=== PATIENT | female | born 1995 | race Caucasian/White ===

== ENCOUNTER 2018-05-06 20:44 | Emergency (ER) | payer MEDICAID, SELFPAY ==
[2018-05-06 21:00] VITALS: BP 121/66; PULSE 75; RESP 16; TEMP 37.1; O2SAT 98
--- NOTE | 2018-05-06 21:08 | W.ED.GENAD ---
Discharge Plan Disposition Patient Disposition: HOME Condition: Stable Discharge Details Chief Complaint: Sorethroat Clinical Impression: Acute streptococcal pharyngitis Primary Care Provider: Cherelle Robledo ED Provider: Phil Chapa Home Meds and New Rx's Prescriptions: New amoxicillin 500 mg capsule 500 mg PO BID Qty: 20 RF: 0 Discharge Instructions Instructions: Strep Throat (ED) Additional Instructions: Return immediately to the emergency department for any new or significant worsening of symptoms such as any difficulty breathing, inability to swallow, high fevers, or further concerns. Otherwise take your antibiotics as prescribed and until fully complete and follow-up with your primary care provider if not improving over the next week. For discomfort you may use [id number] sore throat medications along with ibuprofen or acetaminophen Stand Alone Forms: Work Release Referrals: Cherelle Robledo PA [Primary Care Provider] - (As needed for reassessment) Discharge Data Discharge Date/Time-TO BE ENTERED AT DEPARTURE: 05/06/18 21:51 Medical Decision Making Patient presenting to the emergency department for chief complaint of sore throat. Patient states that it started earlier this day and has not improved. Patient denies any nasal congestion, cough, drooling, inability to swallow, swelling of tongue. 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 Physical exam shows mild tonsillar erythema with mild hypertrophy otherwise unremarkable examination. medical staff coordinator initiated protocol for rapid strep testing which showed positive rapid strep test. Discussed with patient risk versus benefit of treatment which patient states preferred treatment. Patient placed upon amoxicillin and encouraged to return for any new or significant worsening of symptoms otherwise follow-up with primary care provider if not improving by the end of antibiotic therapy. After discussion of diagnosis and plan of care patient has no further needs, questions, or concerns and states clear understanding to return to the emergency department for any worsening symptoms. HPI General Mode of arrival: ambulatory. Date/Time Provider Initiated Documentation: 05/06/18 21:08. Limitations to Documentation: no limitations. Information obtained by: patient and RN notes reviewed. History of Present Illness 23 year old F presents to the emergency department with the chief complaint of sore hroat, described as mild, with intensity rated at 3. Quality is described as aching, and is localized to the neck (Sore throat). Patient reports no radiation. Patient started experiencing this day(s) (1) and it has been constant. No relieving factors improve symptom(s), No exacerbating factors reported . Patient notes no other symptoms.. Patient did receive the following treatments prior to arrival, none Related Data Home Medications Medication Instructions Recorded Confirmed amoxicillin 500 mg PO BID #20 cap 05/06/18 Previous Rx's Medication Instructions Recorded amoxicillin 500 mg PO BID #20 cap 05/06/18 Allergies Allergy/AdvReac Type Severity Reaction Status Date / Time environmental Allergy Mild Uncoded 05/06/18 21:11 Review of Systems Constitutional Reports chills, Reports fever(s), Denies headache(s) and Reports malaise ENT Reports as per HPI, Denies dysphagia, Denies headache(s), Denies lip swelling, Denies nasal congestion, Reports sore throat, Denies throat swelling and Denies tongue swelling Cardiovascular Denies chest pain Respiratory Denies chest congestion and Denies cough Gastrointestinal Denies dysphagia Neurologic Denies headache(s) Allergic/Immunologic Denies lip swelling, Denies throat swelling and Denies tongue swelling PFSH Family History Mother Age: 46 Asthma Other Diabetes Mental disorder Other Mental disorder Family History Mother Age: 46 Asthma Other Diabetes Mental disorder Other Mental disorder Social History Smoking/Tobacco Use Status: Never Social History Smoking/Tobacco Use Status: Never Exam Const General: cooperative, healthy appearing, comfortable, no acute distress and not ill appearing Orientation: alert, awake and oriented x3 HENMT Head: normal to inspection and normocephalic Ears: hearing grossly normal bilaterally, external ears normal, TM's normal bilaterally and mastoids normal General nose exam: external nose normal and nares normal Face and sinus: normal facial exam and sinuses nontender Mouth: oral mucosae normal, lip normal, tongue normal, no audible dysphonia, no drooling and no trismus Throat: uvula midline, abnormal tonsil bilaterally erythema and hypertrophy 1+ and no peritonsillar masses Neck Neck: normal visual inspection, full ROM, no lymphadenopathy and no meningeal signs Resp Effort & Inspection: normal respiratory effort, able to speak in complete sentences and no stridor Auscultation: clear to auscultation bilaterally Cardio Rate: regular rate Rhythm: regular rhythm Heart Sounds: S1 normal and S2 normal Skin General skin exam: no rashes or lesions noted
--- NOTE | 2018-05-06 21:42 | ED.GENADUL_ITS ---
Discharge Plan Disposition Patient Disposition: HOME Condition: Stable Discharge Details Chief Complaint: Sorethroat Clinical Impression: Acute streptococcal pharyngitis Primary Care Provider: Cherelle Robledo ED Provider: Phil Chapa Home Meds and New Rx's Prescriptions: New amoxicillin 500 mg capsule 500 mg PO BID Qty: 20 RF: 0 Discharge Instructions Instructions: Strep Throat (ED) Additional Instructions: Return immediately to the emergency department for any new or significant worsening of symptoms such as any difficulty breathing, inability to swallow, high fevers, or further concerns. Otherwise take your antibiotics as prescribed and until fully complete and follow-up with your primary care provider if not improving over the next week. For discomfort you may use over- the-counter sore throat medications along with ibuprofen or acetaminophen Stand Alone Forms: Work Release Referrals: Cherelle Robledo PA [Primary Care Provider] - (As needed for reassessment) Discharge Data Discharge Date/Time-TO BE ENTERED AT DEPARTURE: 05/06/18 21:51 Medical Decision Making Patient presenting to the emergency department for chief complaint of sore throat. Patient states that it started earlier this day and has not improved. Patient denies any nasal congestion, cough, drooling, inability to swallow, swelling of tongue. 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 Physical exam shows mild tonsillar erythema with mild hypertrophy otherwise unremarkable examination. public health staff nurse initiated protocol for rapid strep testing which showed positive rapid strep test. Discussed with patient risk versus benefit of treatment which patient states preferred treatment. Patient placed upon amoxicillin and encouraged to return for any new or significant worsening of symptoms otherwise follow-up with primary care provider if not improving by the end of antibiotic therapy. After discussion of diagnosis and plan of care patient has no further needs, questions, or concerns and states clear understanding to return to the emergency department for any worsening symptoms. HPI General Mode of arrival: ambulatory . Date/Time Provider Initiated Documentation: 05/06/18 21:08 . Limitations to Documentation: no limitations . Information obtained by: patient and RN notes reviewed . History of Present Illness 23 year old F presents to the emergency department with the chief complaint of sore hroat, described as mild, with intensity rated at 3. Quality is described as aching, and is localized to the neck (Sore throat). Patient reports no radiation. Patient started experiencing this day(s) (1) and it has been constant. No relieving factors improve symptom(s), No exacerbating factors reported . Patient notes no other symptoms.. Patient did receive the following treatments prior to arrival, none Related Data Home Medications Medication Instructions Recorded Confirmed amoxicillin 500 mg PO BID #20 cap 05/06/18 Previous Rx's Medication Instructions Recorded amoxicillin 500 mg PO BID #20 cap 05/06/18 Allergies Allergy/AdvReac Type Severity Reaction Status Date / Time environmental Allergy Mild Uncoded 05/06/18 21:11 Review of Systems Constitutional Reports chills, Reports fever(s), Denies headache(s) and Reports malaise ENT Reports as per HPI, Denies dysphagia, Denies headache(s), Denies lip swelling, Denies nasal congestion, Reports sore throat, Denies throat swelling and Denies tongue swelling Cardiovascular Denies chest pain Respiratory Denies chest congestion and Denies cough Gastrointestinal Denies dysphagia Neurologic Denies headache(s) Allergic/Immunologic Denies lip swelling, Denies throat swelling and Denies tongue swelling PFSH Family History Mother Age: 46 Asthma Other Diabetes Mental disorder Other Mental disorder Family History Mother Age: 46 Asthma Other Diabetes Mental disorder Other Mental disorder Social History Smoking/Tobacco Use Status: Never Social History Smoking/Tobacco Use Status: Never Exam Const General: cooperative, healthy appearing, comfortable, no acute distress and not ill appearing Orientation: alert, awake and oriented x3 HENMT Head: normal to inspection and normocephalic Ears: hearing grossly normal bilaterally, external ears normal, TM's normal bilaterally and mastoids normal General nose exam: external nose normal and nares normal Face and sinus: normal facial exam and sinuses nontender Mouth: oral mucosae normal, lip normal, tongue normal, no audible dysphonia, no drooling and no trismus Throat: uvula midline, abnormal tonsil bilaterally erythema and hypertrophy 1+ and no peritonsillar masses Neck Neck: normal visual inspection, full ROM, no lymphadenopathy and no meningeal signs Resp Effort & Inspection: normal respiratory effort, able to speak in complete sentences and no stridor Auscultation: clear to auscultation bilaterally Cardio Rate: regular rate Rhythm: regular rhythm Heart Sounds: S1 normal and S2 normal Skin General skin exam: no rashes or lesions noted
[2018-05-06] MEDS: Amoxicillin 500 MG CAP PO (21:45)
== END 2018-05-06 21:51 | disposition home or self-care (01) ==
LOC: ER 21:55
PROVIDERS: Emergency Provider Nurse Practitioner Family; PCP Physician Assistant Medical
DX: J02.0 Streptococcal pharyngitis (principal)
CPT/HCPCS: 87880; 99283

== ENCOUNTER 2021-05-20 15:59 | Outpatient (CLI) | payer SELFPAY ==
--- NOTE | 2021-05-20 15:45 | RT.EKG_ITS ---
APPROVED REPORT Exam: Resting ECG Reason for Exam: Chest pain Patient Location: O HR:70 bpm ECG Measurements Heart Rate 70 AXIS [place] 138 P 46 QRSd 78 QRS 26 QT 417 T 23 QTc 450 Conclusion Sinus rhythm...normal P axis, V-rate 60- 99 Normal Electrocardiogram
== END 2021-05-20 16:00 | disposition home or self-care (01) ==
LOC: DI.CM 16:00
PROVIDERS: PCP Physician Assistant Medical; Visit Provider Physician Assistant
DX: R07.89 Other chest pain (principal)
CPT/HCPCS: 93010

== ENCOUNTER 2021-10-15 16:50 | Outpatient (REF) | payer SELFPAY ==
[2021-10-17 11:22] LABS: COVID-19 RT-PCR UVMMC Result Negative (Negative)
== END 2021-10-15 16:51 | disposition home or self-care (01) ==
LOC: NCHCN 16:50
PROVIDERS: PCP Physician Assistant Medical; Visit Provider Family Medicine
DX: J06.9 Acute upper respiratory infection, unspecified (principal); Z20.822 Contact with and (suspected) exposure to COVID-19
CPT/HCPCS: U0003

== ENCOUNTER 2022-06-27 09:53 | Outpatient (REF) | payer BC, SELFPAY ==
[2022-06-27 19:30] LABS: Abs Immature Grans 0.01 10^3/uL (0.0-0.06); Absolute Basophil Count 0.07 10^3/uL (0.0-0.2); Absolute Lymphocyte Count 1.73 10^3/uL (1.2-3.4); Absolute Monocyte Count 0.53 10^3/uL (0.1-0.8); Absolute Neutrophil Count 4.22 10^3/uL (1.2-6.7); Eosinophils % 4.4; HCT 39.5 % (36.0-46.0); HGB 13.5 g/dL (11.2-15.7); Immature Grans % 0.1; Lymphocytes % 25.2; MCH 31.3 pg (27.0-33.0); MCHC 34.2 % (32.0-36.0); MCV 92 fL (80-95); MPV 12.3 fL (8.0-11.0); Monocytes % 7.7; Neutrophils % 61.6; Platelet Count 264 10^3/uL (130-400); RBC 4.31 10^6/uL (3.93-5.22); RDW-SD 40.5 fL; WBC 6.86 10^3/uL (4.4-10.8)
[2022-06-27 19:41] LABS: ALT 26 U/L (14-59); AST 18 U/L (15-37); Alkaline Phosphatase 84 U/L (46-116); Anion Gap 8.3 mmol/L (3-11); BUN 11 mg/dL (7-18); Bilirubin, Total 0.3 mg/dL (0.2-1.0); CO2 23.7 mmol/L (21.0-32.0); CREATININE 0.8 mg/dL (0.55-1.02); Chloride 107 mmol/L (98-107); Estimated GFR 104.15 (mL/min/1.73m2); Glucose 81 mg/dL (74-106); Potassium 4.4 mmol/L (3.5-5.1); Sodium 139 mmol/L (136-145); Total Protein 7.6 g/dL (6.4-8.2)
== END 2022-06-27 09:54 | disposition home or self-care (01) ==
LOC: NCHCN 09:53
PROVIDERS: PCP Physician Assistant Medical; Visit Provider Physician Assistant Medical
DX: R10.11 Right upper quadrant pain (principal)
CPT/HCPCS: 80053; 85025

== ENCOUNTER 2022-10-31 12:58 | Outpatient (REF) | payer BC, SELFPAY ==
[2022-10-31 14:31] LABS: Abs Immature Grans 0.03 10^3/uL (0.0-0.06); Absolute Basophil Count 0.07 10^3/uL (0.0-0.2); Absolute Eosinophil Count 0.28 10^3/uL (0.0-0.7); Absolute Lymphocyte Count 2.04 10^3/uL (1.2-3.4); Absolute Monocyte Count 0.61 10^3/uL (0.1-0.8); Basophils % 0.8; HCT 39.4 % (36.0-46.0); HGB 13.3 g/dL (11.2-15.7); Immature Grans % 0.3; Lymphocytes % 22.1; MCH 31.2 pg (27.0-33.0); MCHC 33.8 % (32.0-36.0); MCV 93 fL (80-95); MPV 11.1 fL (8.0-11.0); Monocytes % 6.6; Neutrophils % 67.2; Platelet Count 324 10^3/uL (130-400); RBC 4.26 10^6/uL (3.93-5.22); RDW 12.2 % (11.7-14.6); RDW-SD 40.8 fL; WBC 9.23 10^3/uL (4.4-10.8)
[2022-10-31 14:52] LABS: FREE T4 0.88 ng/dL (0.76-1.46); TSH 1.29 uIU/mL (0.36-3.74)
[2022-10-31 15:08] LABS: Vitamin D 25 Total 27.2 ng/mL (30-100)
[2022-10-31 22:03] LABS: T3,Free 4.5 pg/mL (2.8-5.3)
== END 2022-10-31 12:59 | disposition home or self-care (01) ==
LOC: NCHCN 12:58
PROVIDERS: PCP Physician Assistant Medical; Visit Provider Nurse Practitioner Family
DX: L65.9 Nonscarring hair loss, unspecified (principal); R59.0 Localized enlarged lymph nodes; Z83.49 Family history of other endocrine, nutritional and metabolic diseases; E55.9 Vitamin D deficiency, unspecified
CPT/HCPCS: 82306; 84439; 84443; 84481; 85025

== ENCOUNTER 2023-05-19 19:52 | Outpatient (REF) | payer BC, SELFPAY | END 2023-05-19 19:53 | disposition home or self-care (01) | LOC: LBN 19:52 | PROVIDERS: PCP Physician Assistant Medical; Visit Provider Nurse Practitioner Family | DX: J02.9 Acute pharyngitis, unspecified (principal) | CPT/HCPCS: 87077; 87070 ==

== ENCOUNTER 2023-09-26 00:09 | Emergency (ER) | payer BC, SELFPAY ==
[2023-09-26 00:12] VITALS: BP 129/100; PULSE 119; RESP 20; TEMP 36.5; O2SAT 98
--- NOTE | 2023-09-26 00:15 | DI.RAD_ITS ---
Exam(s) XR TOE RT GREAT EXAM: XR TOE RT GREAT CLINICAL HISTORY: partial nail avulsion. TECHNIQUE: 2D digital imaging was performed. COMPARISON: No exams were available for comparison FINDINGS: 3 views There is avulsion of the nail of the great toe. No radiopaque foreign body. No fracture. No soft t issue gas. No degenerative changes. IMPRESSION: Avulsion of the nail of the greater toe evident. No fracture. DATA REPOSITORY: RADIATION DOSE DELIVERED:
--- NOTE | 2023-09-26 00:31 | W.ED.GENAD ---
Discharge Plan Disposition Patient Disposition: Home Condition: Good Discharge Details Clinical Impression: Nail avulsion, toe Primary Care Provider: Cherelle Robledo ED Provider: Marita Loredo Home Meds and New Rx's Prescriptions: Continued albuterol sulfate 90 mcg/actuation HFA aerosol inhaler 2 puff inhalation Q6H PRN (Reason: shortness of breath or wheezing) Qty: 8.5 0RF Discharge Instructions Instructions: Peripheral Nerve Block (DC), Nail Avulsion (ED) Additional Instructions: Tylenol and ibuporfen over the counter as needed for pain; follow the directions on the bottle. Call your primary care doctor on Thursday to schedule an appointment for early this week to follow up on your visit here. Return to the emergency department for new or worsening symptoms. Referrals: Cherelle Robledo PA [Primary Care Provider] - [facility] General Mode of arrival: ambulatory. Date/Time Provider Initiated Documentation: 09/26/23 00:13. Limitations to Documentation: no limitations. Information obtained by: patient. HPI Narrative: 28yo F with hx asthma presenting with right great toe injury. Was dancing with partner, wearing sandals, he stepped on her toe and her nail flipped upward. Severe pain. No numbness or tingling. No other pain or injuries. In her usual state of health prior to this event. Related Data Home Medications Medication Instructions Recorded Confirmed albuterol sulfate 90 mcg/actuation 2 puff inhalation Q6H PRN 07/09/22 09/26/23 aerosol inhaler shortness of breath or wheezing #8.5 grams Previous Rx's Medication Instructions Recorded albuterol sulfate 90 mcg/actuation 2 puff inhalation Q6H PRN 07/09/22 aerosol inhaler shortness of breath or wheezing #8.5 grams Allergies Allergy/AdvReac Type Severity Reaction Status Date / Time shellfish derived Allergy Anaphylaxis Verified 09/26/23 00:15 environmental Allergy Mild Skin Rash Uncoded 09/26/23 00:15 General Stated Complaint: Orthopedic ALEXA: 4 Review of Systems Narrative: see HPI Exam Narrative Exam Narrative: General: Alert, well appearing, well nourished. Head: Normocephalic, atraumatic Neck: Trachea midline, ?Neck supple. Cardiac: No cyanosis. Resp: No respiratory distress. Speaking in full sentences. Abd: Non distended. Extremities: ?Right great toe with partial nail avulsion, nail flipped 90 to toe. No nailbed laceration. Sensation and capillary refill intact. Neurologic: GCS 15. ? Moves all extremities freely against gravity Course Vital Signs Vital signs: Vital Signs Temperature 36.5 C 09/26/23 00:12 Pulse 119 H 09/26/23 00:12 Respiratory Rate 20 09/26/23 00:12 Blood Pressure 129/100 H 09/26/23 00:12 Pulse Oximetry 98 09/26/23 00:12 Temperature 36.5 C 09/26/23 00:12 Pulse 119 H 09/26/23 00:12 Respiratory Rate 20 09/26/23 00:12 Blood Pressure 129/100 H 09/26/23 00:12 Pulse Oximetry 98 09/26/23 00:12 Pain Level 7 09/26/23 00:12 Procedures Nerve Block Nerve Block 1: Time out performed: Yes Local Anesthetic: Lidocaine 2% Amount of anesthesia used (mL): 3 Side: right Nerve Blocks: digital (great toe) Procedure Successful: Yes Patient Tolerated Procedure: well Complications: none Medical Decision Making 28yo F with hx asthma presenting with right great toe injury; was dancing with partner while wearing sandals, he stepped on her toe and her nail flipped upward. Tachycardiac on arrival, vital signs otherwise reassuring. Right great toe with partial nail avulsion, nail flipped 90 to toe. No nailbed laceration. Sensation and capillary refill intact. Isolated injury, no indication for labs or advanced imaging/CT/etc. Given tylenol and toradol for pain, tetanus updated. Plain film great toe reviewed; no fracture on my view, agree with radiology read below. Nailbed irrigated with copious normal saline. Right great toe blocked with three sided block and nail replaced. Discharged home; discharge instructions and return precautions were reviewed with patient who verbalized understanding. All questions were answered and she is in full agreement with the plan. Imaging Data Radiologic Study: Imaging: X-Ray Radiologist's impression: IMPRESSION: 1. Visible avulsion of the nail of the great toe. 2. No fracture. Quality:SDOH Health Related Social Needs: No Data to Display PFSH All Active Problems (Updated 09/26/23 @ 01:30 by Marita Loredo MD) Nail avulsion, toe (Acute) Family History Mother Age: 51 Asthma Other Diabetes Mental disorder depression/anxiety schizaphrenia Other Mental disorder depression/anxiety schizophrenia Social History Smoking/Tobacco Use Status: Never Smoking risk assessment performed?: Yes Alcohol Intake: current Alcohol type: beer and hard liquor Drug use: Never Do you feel safe in your relationship?: Yes PAWSS Have you Been Recently Intoxicated or Drunk Within the Last 30 days?: No Have you Ever Experienced Previous Episodes of Alcohol Withdrawal?: No Have you ever Experienced Withdrawal Seizures?: No Have you ever Experienced Delirium Tremens(DT)s?: No Have you ever undergone Alcohol Rehabilitation Treatment (i.e, inpt ot outpatient treatment programs)?: No Have you ever Experienced Blackouts?: No Have you ever Combined Alcohol with other Downers within the last 90 days?: No Have you ever Combined Alcohol with any other Substance of Abuse during the last 90 days?: No Positive Blood Alcohol level on Presentation? [PCS.BAL]: No Evidence of Increased Autonomic Activity (i.e. HR>120, tremor, sweating, agitation, nausea)?: No Result: 0
[2023-09-26] MEDS: Ketorolac 15 MG/ML VIAL IM (00:32)
[2023-09-26] MEDS: Acetaminophen 500 MG TAB 1000 MG PO (00:33)
[2023-09-26] MEDS: Lidocaine 2% Multi-Dose 50 ML VIAL (01:20)
--- NOTE | 2023-09-26 01:26 | DI.VRAD_ITS ---
PROCEDURE INFORMATION: Exam: XR Right Toe(s) Exam date and time: 09/26/2023 12:50 AM Age: 28 years old Clinical indication: Injury or trauma; Other: Partial nail avulsion; Blunt trauma; Toes; Right TECHNIQUE: Imaging protocol: Radiologic exam of the right toes. Views: Minimum 2 views. COMPARISON: No relevant prior studies available. FINDINGS: Bones/joints: No fracture. Soft tissues: Visible avulsion of the nail of the great toe. No soft tissue gas. IMPRESSION: 1. Visible avulsion of the nail of the great toe. 2. No fracture. Dictated and Authenticated by: Armando Santos MD. Ordering:SHAILESH Kirkland MD
[2023-09-26 01:48] VITALS: BP 148/82; PULSE 98; RESP 20; TEMP 36.6; O2SAT 98
== END 2023-09-26 01:48 | disposition home or self-care (01) ==
PROVIDERS: Emergency Provider Student in an Organized Health Care Education/Training Program; PCP Physician Assistant Medical
DX: S91.201A Unspecified open wound of right great toe with damage to nail, initial encounter (principal); Z23 Encounter for immunization; W50.0XXA Accidental hit or strike by another person, initial encounter; Y93.41 Activity, dancing; Y92.89 Other specified places as the place of occurrence of the external cause
CPT/HCPCS: 11760; 90471; 90715; 96372; 99283; 73660; J1885; J2003

== ENCOUNTER 2024-04-11 13:33 | Outpatient (REF) | payer BC, SELFPAY ==
--- NOTE | 2024-04-11 09:30 | PAPFT_PTH ---
PATIENT: Brittany Pérez LOC: [facility] U#:[id number] AGE/SX: 29/F ROOM: RE04/11/[address]: Cherelle Robledo : 1995 BED: DIS: 04/11/2024 SPEC #: [id number] RECD: 04/11/24 18:31 STATUS: MIKA REBakari #: [id number] LARS: 04/11/24 09:[address]: Cherelle Robledo [facility] Cytology RECD BY: Sarah Zee Tissues: 1 - CX/ENDOCX FOR PAP SMEARS Procedures: PAP THIN PREP/[facility] Screening Comments: [id number]
[2024-04-11 16:43] LABS: Calculated LDL 79 mg/dL (<100); Cholesterol 163 mg/dL (<200); HDL Cholesterol 73 mg/dL (40-60); Triglyceride 55 mg/dL (<150)
[2024-04-11 17:56] LABS: Hemoglobin A1C 4.8 % (<5.7)
[2024-04-12 09:47] LABS: Hepatitis C Ab w Rflx HCV PCR Negative (Negative)
[2024-04-12 09:53] LABS: HIV-1/2 Ag & Ab Screen Negative (Negative)
== END 2024-04-11 13:34 | disposition home or self-care (01) ==
LOC: NCHCN 13:33
PROVIDERS: PCP Physician Assistant Medical; Visit Provider Physician Assistant Medical
DX: Z11.51 Encounter for screening for human papillomavirus (HPV) (principal); Z01.419 Encounter for gynecological examination (general) (routine) without abnormal findings; Z00.00 Encounter for general adult medical examination without abnormal findings; E66.3 Overweight
CPT/HCPCS: 80061; 86803; 87389; 88142; 83036

== ENCOUNTER 2024-11-28 18:15 | Outpatient (REF) | payer BC, SELFPAY ==
[2024-11-28 16:13] LABS: Abs Immature Grans 0.02 10^3/uL (0.0-0.06); Absolute Basophil Count 0.07 10^3/uL (0.0-0.2); Absolute Eosinophil Count 0.24 10^3/uL (0.0-0.7); Absolute Lymphocyte Count 1.78 10^3/uL (1.2-3.4); Absolute Monocyte Count 0.52 10^3/uL (0.1-0.8); Absolute Neutrophil Count 4.02 10^3/uL (1.2-6.7); Basophils % 1.1 %; Eosinophils % 3.6 %; HCT 37.2 % (36.0-46.0); HGB 12.6 g/dL (11.2-15.7); Immature Grans % 0.3 %; Lymphocytes % 26.8 %; MCH 31.5 pg (27.0-33.0); MCHC 33.9 % (32.0-36.0); MCV 93 fL (80-95); MPV 12.4 fL (8.0-11.0); Monocytes % 7.8 %; Neutrophils % 60.4 %; Platelet Count 249 10^3/uL (130-400); RDW 11.5 % (11.7-14.6); RDW-SD 39.2 fL; WBC 6.65 10^3/uL (4.4-10.8)
[2024-11-28 16:42] LABS: INR 0.9 (0.9-1.1); Prothrombin Time 9.4 sec (9.1-11.1)
== END 2024-11-28 18:16 | disposition home or self-care (01) ==
LOC: NCHCN 18:15
PROVIDERS: PCP Physician Assistant Medical; Visit Provider Physician Assistant Medical
DX: R04.0 Epistaxis (principal)
CPT/HCPCS: 85025; 85610; 85730

== ENCOUNTER 2025-03-09 07:30 | Emergency (ER) | payer BC, SELFPAY ==
[2025-03-09 07:32] VITALS: BP 115/63; PULSE 91; RESP 16; TEMP 36.6; O2SAT 99
[2025-03-09 07:40] VITALS: BP 115/63; PULSE 91; RESP 16; TEMP 35.9; O2SAT 99
--- NOTE | 2025-03-09 07:45 | DI.CT_ITS ---
Exam(s) CT ABDOMEN PELVIS W EXAM: CT ABDOMEN PELVIS W CLINICAL HISTORY: b/l lower quadrant pain, R>L TECHNIQUE: Imaging Protocol: Axial computed tomography images with coronal and sagittal reformatted images were created and reviewed. CONTRAST MATERIAL: Intravenous: Omnipaque 350 Contrast volume:75 mL Oral: No COMPARISON: US ABDOMEN ULTRASOUND (P) from 11/16/2014 FINDINGS: ABDOMEN: Lung Bases: No acute abnormality. Liver: Normal density. No measurable mass. Portal, Superior Mesenteric, and Splenic Veins: Unremarkable. Gallbladder and Biliary Tract: The gallbladder is absent. There is no biliary ductal dilatation. Pancreas: Normal density, no abnormal calcifications or inflammatory process. Spleen: Normal. Adrenals: No masses seen. Kidneys: Normal size, contour and axis. No radiodense stones or obstructive uropathy. No masses seen. Abdominal Aorta: Abdominal portion non-dilated. Bowel: No obstruction or bowel wall thickening. Appendix is unremarkable. Peritoneal Cavity: There is a tiny amount of fluid in the cul-de-sac which is likely physiologic. No free air. Lymph Nodes: There are mildly enlarged lymph nodes seen in the right lower quadrant. Several have short axis diameters of at least 5 mm. Bones: Within normal limits for the patient's age. Soft Tissues: Unremarkable. PELVIS: Bladder: Symmetric distention, no gross wall thickening. Reproductive Organs: There is a 2.3 cm right ovarian corpus luteal cyst. The reproductive organs are otherwise unremarkable. Lymph Nodes: Within normal limits. Bones: Within normal limits for the patient's age. IMPRESSION: 1. Normal appendix. 2. 2.3 cm right ovarian corpus luteal cyst. There is a tiny amount of free fluid in the cul-de-sac, which is likely physiologic. 3. Mildly enlarged lymph nodes seen in the right lower quadrant which can be seen with a mesenteric adenitis. RADIATION DOSE DELIVERED: 350.76mGy.cm Total DLP DATA REPOSITORY: All CT scans at this facility are submitted to the National Radiology Data Registry (NRDR) Dose Index Registry (DIR) with the [employer] (ACR). RADIATION OPTIMIZATION: All CT scans at this facility use at least one of these dose optimization techniques: automated exposure control; mA and/or kV adjustment per patient size (includes targeted exams where dose is matched to clinical indication); or iterative reconstruction.
--- NOTE | 2025-03-09 08:08 | W.ED.GENAD ---
Discharge Plan Disposition Patient Disposition: Home Condition: Stable Discharge Details Clinical Impression: Mesenteric adenitis, Corpus luteum cyst of right ovary Primary Care Provider: Cherelle Robledo ED Provider: Danielle De Leon Home Meds and New Rx's Prescriptions: New ondansetron 4 mg tablet,disintegrating 4 mg PO Q8H PRNQty: 10 0RF No Action Wegovy 1.7 mg/0.75 mL pen injector 1.7 mg subcut QWEEK Discharge Instructions Instructions: Mesenteric Lymphadenitis (DC) Additional Instructions: You were seen in the emergency department today for evaluation of abdominal discomfort and nausea. In our department you do full physical examination performed, had laboratory studies that were reassuring, and did not show any sign of infection in your urine, problems with your kidney, liver, or pancreas, or abnormalities in your blood counts or electrolytes. You had a CT scan of your abdomen that showed a right sided corpus luteum cyst, and a normal ovarian cyst associated with ovulation and your menstrual cycle. This will go away on its own. You did have some inflammation in the lymph nodes in your pelvis, a condition known as mesenteric adenitis. The exact cause of this condition is not clear, your appendix appeared healthy and normal and there were no other concerning findings on your CT scan to explain your symptoms. Treatment for this condition involves good hydration, for which I provided you with a short course of Zofran to manage nausea. Please use therapeutic dosing of Tylenol (acetaminophen) & Advil (ibuprofen) in an alternating fashion as follows: Take 1000mg of Tylenol every 6 hours without missing doses- that is 4 times per day. [place] in between the Tylenol doses, take 600mg of Advil also on a 6 hour schedule, that is also 4 times per day. With this strategy, you will be taking something for fever/pain as often as every 3 hours. The daily maximum dosing of Tylenol is 4000mg, and the daily maximum dosing of Advil is 2400mg. Please note that some common cold medications & prescription pain medications may contain acetaminophen and you need to read OTC drug labels and factor that in to maximum daily doses. Please follow-up with your primary care provider in the next few days to discuss this visit and any symptoms that change, worsen, or persist. Thank you for allowing us to be part of your care. Stand Alone Forms: Work Release HPI General Mode of arrival: ambulatory. Date/Time Provider Initiated Documentation: 03/09/25 07:42. Limitations to Documentation: no limitations. Information obtained by: patient, family and old records reviewed. HPI Narrative: This is a 30-year-old female patient with a history of exercise-induced asthma and dysmenorrhea, presenting for evaluation of abdominal pain. The patient reports that her pain has been present since Thursday, it seems to come and go and she has not been able to identify any propagating or palliating factors. She has taken ibuprofen without improvement, states that she has been experiencing some nausea, especially this morning when she had a very sudden sharp pain in her right lower quadrant, radiating into her groin and her right buttock. She states that this episode lasted about 10 minutes before improving, pain is now present but more controlled. She has not had vomiting, fever, diarrhea, last bowel movement yesterday. States that she has a history of cholecystectomy. The patient denies new vaginal discharge or concerning vaginal bleeding, last menstrual cycle started on the of last month and was normal for her. Related Data Home Medications ?Medication ?Instructions ?Recorded ?Confirmed ondansetron 4 mg disintegrating 4 mg PO Q8H PRN #10 tabs 03/09/25 tablet semaglutide (weight loss) 1.7 1.7 mg subcut QWEEK 03/09/25 03/09/25 mg/0.75 mL subcutaneous pen injector (Wegovy) Previous Rx's ?Medication ?Instructions ?Recorded ondansetron 4 mg disintegrating 4 mg PO Q8H PRN #10 tabs 03/09/25 tablet Allergies Allergy/AdvReac Type Severity Reaction Status Date / Time shellfish derived Allergy Anaphylaxis Verified 03/09/25 07:37 General Stated Complaint: Abd Prob ALEXA: 3 Exam Narrative Exam Narrative: Gen: Awake and alert, in no apparent distress HEENT: Non-icteric sclera Neck: Supple Lungs: No apparent respiratory distress, normal respiratory effort. CV: Appears well perfused, heart with regular rate and rhythm, strong distal pulses Abdomen: Non-distended, soft, tender to palpation in a scattered distribution including the periumbilical region, left and right lower quadrants, and epigastric region. Treadwell sign negative, no rigidity, rebound, or guarding MSK: Moves 4 extremities without apparent limitation in ROM. No CVA tenderness Skin: Visualized skin without rashes, cyanosis. Neuro: Normal Gait, no obvious focal deficits or facial asymmetry. Speaks in full, clear sentences. Psych: Appropriate for situation. Course Vital Signs Vital signs: Vital Signs Temperature 36.6 C 03/09/25 07:32 Pulse 91 H 03/09/25 07:32 Respiratory Rate 16 03/09/25 07:32 Blood Pressure 115/63 03/09/25 07:32 Pulse Oximetry 99 03/09/25 07:32 Temperature 35.9 C L 03/09/25 07:40 Temperature Source Tympanic 03/09/25 07:40 Pulse 91 H 03/09/25 07:40 Respiratory Rate 16 03/09/25 07:40 Blood Pressure 115/63 03/09/25 07:40 Blood Pressure Position Sitting 03/09/25 07:40 Pulse Oximetry 99 03/09/25 07:40 Oxygen Delivery Method Room Air 03/09/25 07:40 Oxygen Flow Rate 0 03/09/25 07:40 Pain Level 7 03/09/25 07:40 Medical Decision Making This is a 30-year-old female patient presenting for evaluation of 4 days of intermittent abdominal pain. My differential includes, but is not limited to, gastritis/PUD, gastroenteritis, pancreatitis, cholecystitis and gallbladder pathology, hepatitis, appendicitis, diverticulitis, small bowel obstruction. Considered urinary pathology including UTI, nephrolithiasis. Considered mesenteric ischemia, aortic pathology, though this is less concerning based on the patient's history and physical exam. Considered ectopic , PID/TOA, ovarian cyst, ovarian torsion. The patient had a negative test yesterday when she was evaluated by her primary care provider, and I do not see an indication to repeat that test today as my concern for ectopic and related complaints are low. We will obtain labs to include CBC, CMP, magnesium, lipase, and urinalysis. Will obtain CT abdomen and pelvis with contrast, and provide the patient with Toradol and Zofran for initial symptomatic management. - I independently interpreted the laboratory studies, which show no significant leukocytosis, anemia, or thrombocytopenia. The chemistry panel is without evidence of electrolyte abnormality, kidney dysfunction, or liver injury. Lipase is low and the urinalysis is noninfectious and without hematuria. CT scan reviewed by myself, shows a right sided corpus luteum cyst with some trace physiologic fluid in the pelvis. Additionally, mesenteric adenitis is noted by radiology. I shared these findings with the patient, and counseled her on conservative management with good hydration, and pain medications including Tylenol and ibuprofen. A short course of Zofran was sent to her pharmacy to facilitate good hydration. At this time, the patient has had a full medical evaluation and is safe for discharge to home. They are hemodynamically stable, ambulatory, and tolerating PO. They are understanding of the follow-up plan and return precautions. They left our facility without incident. Danielle De Leon MD [facility] All Active Problems (Updated 03/09/25 @ 09:09 by Danielle De Leon MD) Corpus luteum cyst of right ovary (Acute) Mesenteric adenitis (Acute) Family History Mother Age: 52 Asthma Other Diabetes Mental disorder depression/anxiety schizaphrenia Other Mental disorder depression/anxiety schizophrenia Social History Smoking/Tobacco Use Status: Never Smoking risk assessment performed?: Yes Alcohol Intake: current Alcohol Intake frequency: a few times a month Alcohol type: beer and hard liquor Drug use: Never Housing: house Do you feel safe at home: Yes Do you feel safe in your relationship?: Yes
[2025-03-09 08:14] LABS: Abs Immature Grans 0.04 10^3/uL (0.0-0.06); HCT 39.8 % (36.0-46.0); HGB 13.1 g/dL (11.2-15.7); Immature Grans % 0.4 %; MCH 30.3 pg (27.0-33.0); MCHC 32.9 % (32.0-36.0); MCV 92 fL (80-95); MPV 10.9 fL (8.0-11.0); Platelet Count 289 10^3/uL (130-400); RBC 4.32 10^6/uL (3.93-5.22); RDW 11.6 % (11.7-14.6); RDW-SD 39.5 fL; WBC 9.84 10^3/uL (4.4-10.8)
[2025-03-09] MEDS: Ketorolac 15 MG/ML VIAL IVP (08:15)
[2025-03-09] MEDS: Ondansetron 4 MG/2 ML VIAL IVP (08:16)
[2025-03-09 08:17] LABS: Glucose Negative (Negative)
[2025-03-09] MEDS: Normal Saline Flush 10 ML SYR IVP (08:18)
[2025-03-09 08:37] LABS: ALT 24 U/L (14-59); AST 12 U/L (15-37); Albumin 4.0 g/dL (3.4-5.0); Alkaline Phosphatase 72 U/L (46-116); Anion Gap 9.4 mmol/L (3-11); BUN 12 mg/dL (7-18); Bilirubin, Total 0.3 mg/dL (0.2-1.0); CO2 25.6 mmol/L (21.0-32.0); Calcium 8.7 mg/dL (8.5-10.1); Chloride 104 mmol/L (98-107); Estimated GFR 124.53 (mL/min/1.73m2); Glucose 78 mg/dL (74-106); Lipase 39 U/L (<78); Magnesium 2.1 mg/dL (1.8-2.4); Potassium 3.8 mmol/L (3.5-5.1); Sodium 139 mmol/L (136-145); Total Protein 7.9 g/dL (6.4-8.2)
[2025-03-09 09:20] VITALS: BP 103/56; PULSE 71; RESP 14; O2SAT 98
== END 2025-03-09 09:29 | disposition home or self-care (01) ==
PROVIDERS: Emergency Provider Emergency Medicine; PCP Physician Assistant Medical
DX: I88.0 Nonspecific mesenteric lymphadenitis (principal); N83.11 Corpus luteum cyst of right ovary
CPT/HCPCS: 99285; 99284; 36415; 96374; 80053; 83690; 74177; 81003; 83735; 85025; J1885; J2405

== ENCOUNTER 2025-05-03 17:59 | Outpatient (REF) | payer BC, SELFPAY ==
[2025-05-03 20:22] LABS: HCT 35.4 % (36.0-46.0); HGB 11.9 g/dL (11.2-15.7); MCH 30.7 pg (27.0-33.0); MCHC 33.6 % (32.0-36.0); MCV 91 fL (80-95); MPV 11.1 fL (8.0-11.0); Platelet Count 296 10^3/uL (130-400); RBC 3.88 10^6/uL (3.93-5.22); RDW 11.9 % (11.7-14.6); RDW-SD 39.7 fL; WBC 9.00 10^3/uL (4.4-10.8)
[2025-05-03 20:38] LABS: Lipase 32 U/L (<53)
[2025-05-03 20:41] LABS: ALT 22 U/L (10-49); AST 16 U/L (<34); Albumin 4.1 g/dL (3.2-5.0); Alkaline Phosphatase 71 U/L (46-116); Anion Gap 9 mmol/L (3-11); BUN 17 mg/dL (9-23); Bilirubin, Total 0.20 mg/dL (0.2-1.2); CO2 24.0 mmol/L (20.0-31.0); Calcium 9.1 mg/dL (8.3-10.6); Chloride 105 mmol/L (98-107); Glucose 83 mg/dL (74-106); Potassium 4.1 mmol/L (3.5-5.1); Sodium 138 mmol/L (136-145); Total Protein 6.9 g/dL (5.7-8.2)
[2025-05-03 20:42] LABS: TSH 2.01 uIU/mL (0.55-4.78)
== END 2025-05-03 18:00 | disposition home or self-care (01) ==
LOC: NCHCN 17:59
PROVIDERS: PCP Physician Assistant Medical; Visit Provider Physician Assistant Medical
DX: R10.9 Unspecified abdominal pain (principal); E04.9 Nontoxic goiter, unspecified
CPT/HCPCS: 80053; 83690; 85027; 84439; 84443